=== PATIENT | female | born 1960 | race Caucasian/White ===

== ENCOUNTER 2020-01-07 10:32 | Emergency (ER) | payer OTHER ==
[~2020-01-07] VITALS: Ht 165.1 cm; Wt 74.8 kg
--- NOTE | 2020-01-07 10:32 | NUR ---
Patient BIBA ALS, transferred to bed 5. RN evaluating patient at bedside.
--- NOTE | 2020-01-07 10:35 | NUR ---
59 Y/O FEMALE BIBA ALS C/O GENREALIZED BODY TWITCHING SINCE 929. PER FAMILY PT HAS HAD 1 EPISODE IN PAST LIKE THIS, STATING POSSIBLE SEIZURE. PT AOX4. PT ABLE TO FOLLOW COMMANDS, ALERT AND ORIENTED. RR EVEN AND UNLABORED. NOTICABLE BODY TWITCHING. FAMILY STATES PT IS BEING TAKEN OFF STEROIDS FOR CANCER. PT LAYING IN BED PLACED ON MONITOR. FAMILY AT BEDSIDE MEDHX: BREAST CANCER, BRAIN METS, SEIZURE ALLERGIES: NKA
--- NOTE | 2020-01-07 10:44 | NUR ---
Dr. Marsh is evaluating the patient at bedside.
[2020-01-07 10:52] VITALS: BP 171/93
[2020-01-07] MEDS ORDERED: LORazepam 2 MG/ML VIAL IVP ONE (10:55)
[2020-01-07] MEDS ORDERED: NACL 0.9% 1,000 ML IV SCH (10:56)
[2020-01-07] MEDS ORDERED: DEXAMETHASONE 10 MG/ML VIAL IVP ONE (11:00)
[2020-01-07] MEDS ORDERED: VANCOMYCIN 1,000 MG in DEXTROSE 5% 250 ML IV ONE (11:00)
[2020-01-07] MEDS ORDERED: NACL 0.9% 1,000 ML IV ONE (11:00)
[2020-01-07] MEDS ORDERED: ACETAMINOPHEN 650 MG SUPP RC ONE (11:00)
[2020-01-07] MEDS ORDERED: CEFEPIME 1,000 MG in DEXTROSE 5% 50 ML IV ONE (11:00)
[2020-01-07] MEDS ORDERED: LEVE1000 PO (11:06)
[2020-01-07] MEDS ORDERED: DEC4 PO (11:06)
[2020-01-07] MEDS ORDERED: LACO150T PO (11:06)
--- NOTE | 2020-01-07 11:08 | NUR ---
biodiesel production technician at bedside.
[2020-01-07 11:53] LABS: EOSINOPHILS % (AUTO) 0.1 % (0.0-4.0); HEMATOCRIT 37.6 % (36-48); HEMOGLOBIN 12.7 g/dL (12.0-16.0); LYMPHOCYTES # (AUTO) 0.3 K/uL (2.5-16.5); LYMPHOCYTES % (AUTO) 4.9 % (20.5-51.1); MEAN CORPUSCULAR HEMOGLOBIN 28 pg (27-31); MEAN CORPUSCULAR HGB CONC 34 g/dL (33-37); MEAN CORPUSCULAR VOLUME 81.7 fL (80-94); MONOCYTES # (AUTO) 0.7 K/uL (0.8-1.0); MONOCYTES % (AUTO) 9.7 % (1.7-9.3); NEUTROPHILS # (AUTO) 5.8 K/uL (1.8-7.7); NEUTROPHILS % (AUTO) 85.3 % (42.2-75.2); PLATELET COUNT (AUTO) 43 K/uL (140-450); RED CELL DISTRIBUTION WIDTH 18.2 % (11.6-13.7)
--- NOTE | 2020-01-07 12:00 | NUR ---
PT RESTING IN BED, VISIBLE RISE AND FALL OF THE CHEST. LAYING IN SEMIFOWLERS POSITION. FAMILY AT BEDSIDE. VSS. WILL CONTINUE TO MONITOR
[2020-01-07 12:03] LABS: WHITE BLOOD COUNT (AUTO) 6.8 K/uL (4.8-10.8)
[2020-01-07 12:05] LABS: PROTHROMBIN TIME 9.1 secs (10.8-13.4)
[2020-01-07] MEDS ORDERED: CEFEPIME 1,000 MG VIAL ONE (12:15)
[2020-01-07 12:18] LABS: ANION GAP 8.7 (8-16); CARBON DIOXIDE 32.6 mmol/L (21-32); CREATININE 0.4 mg/dL (0.6-1.3); POTASSIUM 3.3 mmol/L (3.5-5.1); TOTAL BILIRUBIN 0.3 mg/dL (0.0-1.0)
[2020-01-07 12:44] LABS: APPEARANCE,URINE CLEAR (CLEAR); BILIRUBIN,URINE NEGATIVE (NEGATIVE); BLOOD, URINE 1+ (NEGATIVE); COLOR,URINE YELLOW (YELLOW); LEUKOCYTE ESTERASE ,URINE NEGATIVE (NEGATIVE); NITRITE, URINE NEGATIVE (NEGATIVE); PH,URINE 6.5 (5.0-9.0); UGLUCOSE NEGATIVE (NEGATIVE)
[2020-01-07 12:55] LABS: WBC,URINE 0-5 /HPF (0-5)
[2020-01-07] MEDS ORDERED: VANCOMYCIN 1,000 MG VIAL ONE (12:57)
--- NOTE | 2020-01-07 13:55 | NUR ---
PT PLACED ON 4L NC PER DR CHOE. RR EVEN AND UNLABORED. VSS.
--- NOTE | 2020-01-07 15:10 | NUR ---
RR EVEN AND UNLABORED, 2L NC TOLERATING WELL. PT AROUSABLE TO NAME. VSS. WILL CONTINUE TO MONITOR
--- NOTE | 2020-01-07 15:10 | NUR ---
REPORT CALLED TO [facility] IN [place]. SPOKE TO ALEXIS WESTON. PT AWAITING TRANSPORT.
--- NOTE | 2020-01-07 15:59 | NUR ---
LAYING IN SEMIFOWLERS POSITION WITH EYES CLOSED. NO C/O PAIN, PT DOES NOT DISPLAY AND "TWITCHING". FAMILY AT BEDSIDE. WILL CONTINUE TO MONITOR
--- NOTE | 2020-01-07 16:11 | NUR ---
MARIAN at bedside for transportation to [facility].
--- NOTE | 2020-01-07 16:17 | NUR ---
Patient to be transferred to [facility]. Is being transferred due to INSURANCE. Receiving facility has accepting physician and available space. ER physician has signed transfer form. Patient or responsible constitution party has agreed to transfer and signed form. Patient belongings inventoried and will be sent with patient. Copy of nursing notes, lab reports, EKG, Physicians Orders and X-rays to be sent with patient. Report called to ALEXIS WESTON at receiving facility. [facility] ambulance service has been called for transfer.
[2020-01-07 16:20] VITALS: BP 148/82
== END 2020-01-07 16:17 | disposition short-term general hospital (02) ==
LOC: MED 10:32
DX: G40.89 Other seizures (principal); J11.1 Influenza due to unidentified influenza virus with other respiratory manifestations; D69.6 Thrombocytopenia, unspecified; Z85.3 Personal history of malignant neoplasm of breast; Z85.841 Personal history of malignant neoplasm of brain
CPT/HCPCS: 36415; 70450; 71045; 80053; 81001; 82550; 82553; 83605; 83880; 84484; 85025; 85610; 85730; 87040; 87086; 87804; 93005; 96365; 96366; 96367; 96375; 99291; J0692; J1100; J2060; J3370; J7030; Q0092